=== PATIENT | female | born 2000 | race African-American/Black ===

== ENCOUNTER 2025-01-13 08:31 | Emergency (ER) | payer MEDICAID ==
[~2025-01-13] VITALS: Ht 157.5 cm; Wt 53.0 kg
[2025-01-13 08:39] VITALS: O2SAT 100
[2025-01-13] MEDS ORDERED: SULF1TAB48 PO (09:11)
[2025-01-13] MEDS ORDERED: CEPH500T PO (09:11)
[2025-01-13 09:15] LABS: CLARITY URINE CLEAR (CLEAR); COLOR URINE YELLOW (YELLOW); GLUCOSE URINE NEGATIVE (NEGATIVE); KETONES URINE TRACE (NEGATIVE); LEUKOCYTE ESTERASE URINE NEGATIVE (NEGATIVE); NITRITE URINE NEGATIVE (NEGATIVE); OCCULT BLOOD URINE NEGATIVE (NEGATIVE); PROTEIN URINE NEGATIVE (NEGATIVE); SPECIFIC GRAVITY URINE 1.026 (1.005-1.030)
[2025-01-13 09:18] VITALS: BP 116/68; PULSE 85; RESP 16; TEMP 36.7; O2SAT 100
[2025-01-14 17:12] LABS: CHLAMYDIA TRACHOMATIS NAA Negative (Negative); NEISSERIA GONORRHOEAE NAA Negative (Negative)
== END 2025-01-13 09:19 | disposition home or self-care (01) ==
LOC: ER 08:31
DX: L03.116 Cellulitis of left lower limb (principal); Z79.899 Other long term (current) drug therapy
CPT/HCPCS: 81003; 81025; 87491; 87591; 99283

== ENCOUNTER 2025-06-21 03:08 | Emergency (ER) | payer MEDICAID ==
[~2025-06-21] VITALS: Ht 165.1 cm; Wt 54.0 kg
[~2025-06-21 03:08] MED LIST: CEPH500T PO; SULF1TAB48 PO
[2025-06-21 03:15] VITALS: BP 120/80; PULSE 89; RESP 18; TEMP 36.7; O2SAT 99
[2025-06-21] MEDS ORDERED: METR-167 MT (03:31)
[2025-06-21] MEDS ORDERED: FLUC150T46 MT (03:34)
== END 2025-06-21 04:07 | disposition home or self-care (01) ==
LOC: ER 03:47
DX: N76.0 Acute vaginitis (principal); B96.89 Other specified bacterial agents as the cause of diseases classified elsewhere; B37.9 Candidiasis, unspecified
CPT/HCPCS: 99283